=== PATIENT | female | born 1965 | race African-American/Black ===

== ENCOUNTER 2022-05-21 12:42 | Outpatient (CLI) | payer MEDICARE | END 2022-05-21 12:43 | disposition home or self-care (01) | LOC: CSHMAMMO 12:42 | PROVIDERS: ATTEND Family Medicine | DX: Z12.31 Encounter for screening mammogram for malignant neoplasm of breast (principal); N64.89 Other specified disorders of breast; Q83.8 Other congenital malformations of breast; Z80.3 Family history of malignant neoplasm of breast | CPT/HCPCS: 77063; 77067 ==

== ENCOUNTER 2022-06-06 08:52 | Outpatient (CLI) | payer MEDICARE | END 2022-06-06 08:53 | disposition home or self-care (01) | LOC: CSHMAMMO 08:52 | PROVIDERS: ATTEND Family Medicine | DX: N64.89 Other specified disorders of breast (principal) | CPT/HCPCS: 76642; 77065; G0279 ==

== ENCOUNTER 2022-10-06 10:50 | Outpatient (CLI) | payer MEDICARE, MEDICAID | END 2022-10-06 10:51 | disposition home or self-care (01) | LOC: CSHULT 10:50 | PROVIDERS: ATTEND Family Medicine | DX: R74.8 Abnormal levels of other serum enzymes (principal); K76.0 Fatty (change of) liver, not elsewhere classified | CPT/HCPCS: 76700 ==

== ENCOUNTER 2025-06-29 10:31 | Outpatient (CLI) | payer MEDICARE | END 2025-06-29 10:32 | disposition home or self-care (01) | LOC: CSHCT 10:31 | PROVIDERS: ATTEND Internal Medicine | DX: Z12.2 Encounter for screening for malignant neoplasm of respiratory organs (principal); Z87.891 Personal history of nicotine dependence | CPT/HCPCS: 71271 ==